=== PATIENT | male | born 1955 | race Caucasian/White ===

== ENCOUNTER 2018-11-18 12:06 | Day surgery (SDC) | payer MEDICARE, OTHER ==
[~2018-11-18] VITALS: Ht 172.7 cm; Wt 73.3 kg
[2018-11-18] MEDS ORDERED: normal saline 1000ml 1,000 ML IV PRN (12:30)
[2018-11-18 14:00] VITALS: BP 102/70
[2018-11-18 14:00] LABS: BASOPHILS # (AUTO) 0.1 X10'3 (0-0.2); BASOPHILS % (AUTO) 0.7 % (0-1); EOSINOPHILS # (AUTO) 0.2 X10'3 (0-0.9); EOSINOPHILS % (AUTO) 2.2 % (0-6); HEMATOCRIT 43.1 % (42.0-52.0); HEMOGLOBIN 14.4 g/dl (14.0-17.9); LYMPHOCYTES # (AUTO) 2.6 X10'3 (1.1-4.8); LYMPHOCYTES % (AUTO) 25.1 % (21-51); MEAN CORPUSCULAR HEMOGLOBIN 28.8 PG (27.0-31.0); MEAN CORPUSCULAR HGB CONC 33.4 g/dL (33.0-36.5); MEAN CORPUSCULAR VOLUME 86.2 FL (78-98); MEAN PLATELET VOLUME 7.4 FL (7.4-10.4); MONOCYTES # (AUTO) 1.5 X10'3 (0-0.9); MONOCYTES % (AUTO) 14.5 % (2-12); NEUTROPHILS % (AUTO) 57.5 % (42-75); PLATELET COUNT 312 X10'3 (140-440); RED CELL DISTRIBUTION WIDTH 14.2 % (11.5-14.5); WHITE BLOOD COUNT 10.4 X10'3 (4.5-11.0)
[2018-11-18 14:24] LABS: ALBUMIN 3.2 G/DL (3.4-5.0); ANION GAP 12 (8-16); BLOOD UREA NITROGEN 16 MG/DL (7-18); BUN/CREATININE RATIO 13.3 (5.4-32.0); CALCIUM 9.8 MG/DL (8.5-10.1); CHLORIDE 97 MMOL/L (99-107); GLUCOSE 91 MG/DL (70-104); POTASSIUM 5.2 MMOL/L (3.5-5.1); SODIUM 131 MMOL/L (135-145); TOTAL CARBON DIOXIDE 22.4 MMOL/L (24-32); eGFR 61 ML/MIN
[2018-11-18] MEDS ORDERED: LIDO30CR23 TOP (14:34)
[2018-11-18] MEDS ORDERED: METO-292 PO (14:34)
[2018-11-18] MEDS ORDERED: OMEP20TA23 PO (14:34)
[2018-11-18] MEDS ORDERED: ONDA8TAB13 PO (14:34)
[2018-11-18] MEDS ORDERED: DOXE150C PO (14:34)
[2018-11-18] MEDS ORDERED: PROC10TA10 PO (14:35)
[2018-11-18] MEDS ORDERED: HYDR-4353 PO (14:35)
[2018-11-18] MEDS ORDERED: DICY10CA88 PO (14:35)
[2018-11-18] MEDS ORDERED: heparin sodium, porcine/PF 100unit/ml 5ML syringe ICATH ONE (14:50)
[2018-11-18] MEDS ORDERED: midazolam 2 mg/2 ml injection IV PRN (14:50)
[2018-11-18] MEDS ORDERED: LIDOcaine 1% (10mg/ml) 2ml vial SQ ONE (14:50)
[2018-11-18] MEDS ORDERED: fentaNYL/PF 50MCG/1 ML 2ML syringe IV PRN (14:50)
[2018-11-18] MEDS ORDERED: LIDOcaine 1%/PF 5ML 10 MG/ML VIAL ONE (14:51)
[2018-11-18] MEDS ORDERED: fentaNYL/PF 50MCG/1 ML 2ML syringe ONE (15:08)
[2018-11-18] MEDS ORDERED: heparin sodium, porcine/PF 100unit/ml 5ML syringe ONE (15:10)
[2018-11-18 16:01] VITALS: BP 129/75
[2018-11-19] MEDS ORDERED: heparin sodium, porcine/PF 100unit/ml 5ML syringe IV SCH
== END 2018-11-18 16:30 | disposition home or self-care (01) ==
LOC: SSTAY O 12:06
PROVIDERS: ATTEND Radiology Diagnostic Radiology
DX: C34.31 Malignant neoplasm of lower lobe, right bronchus or lung (principal); J44.9 Chronic obstructive pulmonary disease, unspecified; Z98.890 Other specified postprocedural states; Z87.891 Personal history of nicotine dependence; Z80.42 Family history of malignant neoplasm of prostate; Z80.1 Family history of malignant neoplasm of trachea, bronchus and lung
CPT/HCPCS: 36415; 36561; 76937; 77001; 80048; 85025; 85610; 99152; 99153; C1788; C1894; J1642; J3010; J7030; A6213